=== PATIENT | male | born 1985 | race Hispanic/Latino ===

== ENCOUNTER → 2017-11-19 | Outpatient (REF) | payer OTHER ==
[2017-11-19 09:30] LABS: SEMEN APPEARANCE OPAQUE (OPAQUE); SEMEN VISCOSITY LIQUID (LIQUID); SEMEN VOLUME 3.3 ml (4.0-5.0); SEMEN pH 8.5 (7.0-8.0); SPERM ABNORMAL FORMS WBC'S NOTED; SPERM CONCENTRATION 43.6 M/ml (>=15.0); WBC CONCENTRATION >1 M/ml (<=1 M/ml)
[2017-11-19 09:31] LABS: % NORMAL FORMS 14 % (>=4); IMMOTILITY 30 %; NON PROGRESSIVE MOTILITY (c) 14 %; PROGRESSIVE MOTILITY (a) 56 % (>=32); SPERM# 143.8 M/Ejac (>=39); TOTAL MOTILITY 70 % (>=40); TOTAL PROGRESSIVE SPERM 80.3 M/Ejac.
== END ==
LOC: M SMT 09:16
DX: R36.1 Hematospermia (principal)